=== PATIENT | female | born 1990 | race African-American/Black ===

== ENCOUNTER 2018-05-07 03:28 | Emergency (ER) | payer SELFPAY ==
[~2018-05-07] VITALS: Ht 157.5 cm; Wt 50.8 kg
[2018-05-07] MEDS ORDERED: NKM (03:41)
--- NOTE | 2018-05-07 03:56 | Emergency Room Report ---
History of Present Illness General Chief Complaint: Lower Extremity Injury Source: Patient Present Illness HPI Is a 27-year-old female with no past medical history. She presents with chief complaint of right knee pain. She was walking and hit her knee on the flat bed of the truck. This occurred just prior to arrival. Pain is 8 out of 10. Throbbing and sharp in nature. Unable to bear weight. Nothing made it better. Walking makes it worse. Denies any other complaint. No other injury. Allergies: Coded Allergies: No Known Allergies (Unverified , 05/07/18) Patient History Past Medical History: none, see triage record, old chart reviewed Past Surgical History: none Pertinent Family History: none Social History: Denies: smoking Last Menstrual Period: apr 22 Now: No Immunizations: other Reviewed Nursing Documentation: PMH: Agreed; PSxH: Agreed Nursing Documentation-PMH Past Medical History: No Stated History Review of Systems Eye: Denies: eye pain, blurred vision ENT: Denies: ear pain, nose congestion, throat swelling Respiratory: Denies: cough, shortness of breath Cardiovascular: Denies: chest pain, palpitations Gastrointestinal: Denies: abdominal pain, diarrhea, nausea, vomiting Musculoskeletal: Reports: joint pain; Denies: back pain Skin: Denies: rash Neurological: Denies: headache, numbness Endocrine: Denies: increased thirst, increased urine Hematologic/Lymphatic: Denies: easy bruising All Other Systems: negative except mentioned in HPI Physical Exam Vital Signs Date Time Temp Pulse Resp B/P (MAP) Pulse Ox O2 Delivery O2 Flow Rate FiO2 05/07/18 03:36 98.2 79 16 114/78 98 Room Air vitals demond Sp02 EP Interpretation: reviewed, normal General Appearance: well appearing, no apparent distress, alert Head: normocephalic, atraumatic Eyes: bilateral eye PERRL, bilateral eye EOMI ENT: hearing grossly normal, normal pharynx Neck: full range of motion, supple, no meningismus Respiratory: chest non-tender, lungs clear, normal breath sounds Cardiovascular #1: regular rate, rhythm, no murmur Gastrointestinal: normal bowel sounds, non tender, no mass, no organomegaly, no bruit, non-distended Musculoskeletal: back normal, gait/station normal, normal range of motion, other - Right knee: Tenderness over the patella. No deformity. No ecchymosis. No effusion. Knee stable. Psychiatric: mood/affect normal Skin: warm/dry Procedures Splinting Splinting : Consent: Verbal Location: Right knee Pre-Made Type: FERMIN wrap Pre-Proc Neuro Vasc Exam: normal Post-Proc Neuro Vasc Exam: normal Patient Tolerated: Well Complications: None Medical Decision Making Diagnostic Impression: Primary Impression: Contusion of right knee Qualified Codes: S80.01XA - Contusion of right knee, initial encounter ER Course Patient presents with soft tissue injury. No fracture dislocation. We'll discharge home. Other X-Ray Diagnostic Results Other X-Ray Diagnostic Results : X-Ray ordered: Right knee x-rays # of Views/Limited Vs Complete: 4 View Indication: Pain EP Interpretation: Yes Interpretation: no dislocation, no soft tissue swelling, no fractures Impression: No acute disease Electronically Signed by: Tye Tang MD Last Vital Signs Date Time Temp Pulse Resp B/P (MAP) Pulse Ox O2 Delivery O2 Flow Rate FiO2 05/07/18 03:36 98.2 79 16 114/78 98 Room Air Status: improved Disposition: HOME, SELF-CARE Condition: Stable Scripts Ibuprofen* (MOTRIN*) 600 Mg Tablet 600 MG ORAL THREE TIMES A DAY, #30 TAB 0 Refills Prov: Tye Tang MD 05/07/18 Additional Instructions: Follow-up with your doctor in 7 days. Return if symptom worsen. Tye Tang MD May 07, 2018 03:56
[2018-05-07] MEDS ORDERED: IBUPROFEN600 MG ORAL (04:22)
[2018-05-07 04:37] VITALS: BP 114/78
--- NOTE | 2018-05-07 11:31 | Diagnostic Imaging Report ---
Indication: Right knee pain after striking on truck tailgate approximately 4 hours earlier Technique: 4 views of the right knee Comparison: none Findings: No acute fractures. No dislocations. Bony alignment is normal. Joint spaces are preserved Impression: Negative
== END 2018-05-07 04:39 | disposition home or self-care (01) ==
LOC: EMR 03:58
DX: S80.01XA Contusion of right knee, initial encounter (principal); W22.8XXA Striking against or struck by other objects, initial encounter; Y92.9 Unspecified place or not applicable
CPT/HCPCS: 99283